=== PATIENT | female | born 1970 | race African-American/Black ===

== ENCOUNTER → 2016-10-29 | Outpatient (CLI) | payer OTHER ==
[~2016-10-29] MED LIST: BIRTH CONTROL PO; CIPRO500 M1 PO; CYCLAFEM1 EAC1 PO; DAILY VITE1 EACH PO; GAS RELIEF 8080 MG PO; IBUPROFEN 600600 M1 PO; LISINOPRIL20 MG PO; MULTIVITAMINS1 EAC7 PO; NORCO 5-325 TA1 EACH PO
== END ==
LOC: RAD 01:09
DX: Z12.31 Encounter for screening mammogram for malignant neoplasm of breast (principal)

== ENCOUNTER → 2017-11-12 | Outpatient (CLI) | payer OTHER | LOC: RAD 11-01 14:46 | DX: Z12.31 Encounter for screening mammogram for malignant neoplasm of breast (principal) ==

== ENCOUNTER 2018-07-30 19:20 | Emergency (ER) | payer OTHER ==
[~2018-07-30] VITALS: Ht 177.8 cm; Wt 97.5 kg
[2018-07-30] MEDS ORDERED: TYLENOL EXTRA500 MG PO (20:43)
[2018-07-30] MEDS ORDERED: KEFLEX250 MG PO (20:43)
[2018-07-30] MEDS ORDERED: TRAMADOL 50 MG50 MG PO (20:46)
[2018-07-30 20:55] VITALS: BP 170/65
== END 2018-07-30 20:59 | disposition home or self-care (01) ==
LOC: ER 19:20
DX: S01.81XA Laceration without foreign body of other part of head, initial encounter (principal); S02.2XXA Fracture of nasal bones, initial encounter for closed fracture; I10 Essential (primary) hypertension; Z90.710 Acquired absence of both cervix and uterus; W20.8XXA Other cause of strike by thrown, projected or falling object, initial encounter; Y93.89 Activity, other specified; Y92.89 Other specified places as the place of occurrence of the external cause; Y99.8 Other external cause status

== ENCOUNTER → 2018-11-17 | Outpatient (CLI) | payer OTHER ==
[~2018-11-17] MED LIST changes: +KEFLEX250 MG PO; +TRAMADOL 50 MG50 MG PO; +TYLENOL EXTRA500 MG PO
== END ==
LOC: RAD 01:05
DX: Z12.31 Encounter for screening mammogram for malignant neoplasm of breast (principal)

== ENCOUNTER → 2019-11-20 | Outpatient (CLI) | payer OTHER | LOC: BC 08:19 | PROVIDERS: ATTEND Obstetrics & Gynecology | DX: Z12.31 Encounter for screening mammogram for malignant neoplasm of breast (principal); N63.10 Unspecified lump in the right breast, unspecified quadrant; N63.20 Unspecified lump in the left breast, unspecified quadrant ==

== ENCOUNTER → 2020-11-19 | Outpatient (CLI) | payer OTHER | LOC: BC 07:52 | PROVIDERS: ATTEND Obstetrics & Gynecology | DX: Z12.31 Encounter for screening mammogram for malignant neoplasm of breast (principal) ==